=== PATIENT | female | born 1995 | race Caucasian/White ===

== ENCOUNTER → 2017-02-24 | Outpatient (CLI) | payer OTHER | LOC: NUC 09:48 | DX: K82.8 Other specified diseases of gallbladder (principal) ==

== ENCOUNTER 2017-07-08 05:18 | Day surgery (SDC) | payer OTHER ==
[~2017-07-08] VITALS: Ht 157.5 cm; Wt 70.3 kg
--- NOTE | ~2017-07-08 | O ---
[facility] [place] [address] OPERATIVE REPORT Name: PB PAREDES Room #: DEP [facility].#: [id number] Admission: 07/08/17 Attend Phys: Renzo Smith MD, F Discharge: 07/08/17 Date of : 89 Report #: [id number] THIS REPORT FOR: //name// CC: Renzo Mccoy MD DATE OF SERVICE: 07/08/2017 SURGEON: Renzo Smith MD. MEDICAL INSURANCE CODING SPECIALIST: Joana Calloway NP. PREOPERATIVE DIAGNOSIS: Biliary colic with dyskinesia. POSTOPERATIVE DIAGNOSES: Biliary colic with dyskinesia and chronic acalculous cholecystitis. PROCEDURE: Robotic assisted laparoscopic cholecystectomy. ANESTHESIA: General endotracheal anesthesia and local anesthetic. ESTIMATED BLOOD LOSS: 5 mL. SPECIMEN: Gallbladder. COMPLICATIONS: None appreciated. INDICATIONS FOR PROCEDURE: This is a 22-year-old female patient who was seen with intermittent postprandial right upper quadrant abdominal pain and occasional diarrhea. Imaging studies were negative for cholelithiasis; however, a PIPIDA scan showed a 24% gallbladder ejection fraction with reproduction of her symptoms with administration of the cholecystokinin. The patient presents today for robotic-assisted laparoscopic cholecystectomy. OPERATIVE FINDINGS: Upon entrance into the abdominal cavity, the liver, stomach, small bowel and colon and the surrounding area appeared otherwise normal. The gallbladder itself showed evidence for chronic cholecystitis with omental adhesions to the gallbladder. The gallbladder wall itself was chronically thickened. The gallbladder was also quite intrahepatic. The critical view consisting of cystic artery, cystic duct and lower edge of the gallbladder forming a window through which the liver was visible was seen prior to clipping the cystic artery and cystic duct. After removal of the gallbladder from the abdominal cavity, it was opened on the backtable. Gallbladder cholesterolosis was seen within the gallbladder. No gallstones were present. The liver bed was hemostatic and the Hemoclips on the cystic artery and cystic [facility] [address] [place] [address] OPERATIVE REPORT Name: PB PAREDES Room #: DEP [facility]#: [id number] Admission: 07/08/17 Attend Phys: Renzo Smith MD, F Discharge: 07/08/17 Date of : 89 Report #: [id number] duct were secure. DESCRIPTION OF PROCEDURE IN DETAIL: After the risks, benefits, and expectations of the operation were discussed in detail with the patient, informed consent was obtained. The patient was identified in the preoperative holding area. She was given IV antibiotics as documented in the chart in line with SCIP metrics. The patient was then taken to the operating room and she was placed in the supine position. SCDs were placed on the patient's bilateral lower extremities and pneumatic compression was initiated. The patient was then given IV sedation and she was intubated without incident. The bed was rotated 180 degrees to accommodate for the da Abbey robot. The patient's abdomen was then prepped and draped in standard sterile fashion. A time-out was performed to identify the correct patient and procedure. Local anesthetic was infiltrated into the skin and subcutaneous tissue in the left mid abdomen where an 8.5 mm incision was made with #15 blade scalpel. A 5 mm Visiport was then placed intraperitoneally with a 0-degree angled laparoscope. Pneumoperitoneum was achieved with insufflation of carbon dioxide to 15 mmHg. A 10 mm bariatric length Visiport was placed in the lower midline under direct visualization after local anesthetic was infiltrated into the skin and subcutaneous tissue and appropriately sized incisions were made. Additional 8.5 mm ports were placed in the right lower quadrant under direct visualization after local anesthetic was infiltrated and transverse incisions were made. The initially placed 5 mm port was then upsized to 8.5 mm da Abbey port. The robot was then docked to the patient. After appropriately positioning the patient in the reverse Trendelenburg position, rotated to her left. The 10 mm 30-degree angled laparoscope was inserted. A ProGrasp graspers were placed in arms 3 and 2 with the hook in arm 1. I then broke scrub to perform the dissection on the da Abbey console. The dome of the gallbladder was retracted in a cephalad direction. The omental adhesions were then taken down with appropriate traction and use of the hook cautery. With further cephalad retraction of the gallbladder, the gallbladder peritoneum was scored medially and laterally with the hook cautery device. Dissection was carried out around the cystic artery and cystic duct to identify both structures as the only 2 structures entering the gallbladder. The cystic artery was then clipped and divided. The cystic duct was attempted to be clipped robotically; however, there was a malfunction of the clipper and a 5 mm Ligaclip was used instead to triply clip and divide the cystic duct sharply, leaving 2 titanium Hemoclips on the cystic duct stump. The gallbladder was then dissected out of the liver bed with electrocautery and with no entrance into the gallbladder or liver bed. The gallbladder was fully detached and placed in the right upper quadrant of the abdomen for later removal. I then rescrubbed and the robot was undocked from the ports after removal of the instruments under direct visualization. The gallbladder was placed in an [address] [address] OPERATIVE REPORT Name: PB PAREDES Room #: DEP [facility]#: [id number] Admission: 07/08/17 Attend Phys: Renzo Smith MD, F Discharge: 07/08/17 Date of : [birth year] Report #: [id number] Endopouch and removed through the 10 mm port site fascial opening. The liver bed was reexamined for hemostasis. No other significant intra-abdominal pathology was seen. The Hemoclips were secure. An 0 PDS suture was then placed with the Doug-Miryam laparoscopic fascial closure device to close the 10 mm port site fascial opening. The suture was tied under direct visualization to ensure no incorporation of intra-abdominal content. The abdominal cavity was then desufflated and the ports were removed. Interrupted subcuticular 4-0 Monocryl sutures and Dermabond were used to close the skin incisions. The patient tolerated the procedure well. She was awakened, extubated, and taken to recovery room in stable condition with no apparent intraoperative complications. By: [id number] Renzo Smith MD, FACS /nt
--- NOTE | ~2017-07-08 | S ---
[facility] [place] [place] [address] SURGICAL PATH RPT PROCEDURE Name: EVANGELINA CRAIG Room #: DEP [facility] M.R.#: [id number] Admission: 07/08/17 Date of : 89 Discharge: 07/08/17 Report #: [id number] Path Case #: [id number] PATHOLOGY REPORT COLLECTION DATE: 07/08/2017 RECEIVED DATE: 07/08/2017 SUBMITTING PHYS: Dr. Renzo Smith OTHER PHYS: Dr. Yulissa Mccoy SPECIMEN(S) RECEIVED: A.Gallbladder * * * * * * * * * * * * FINAL DIAGNOSIS: Gallbladder, cholecystectomy: - Chronic cholecystitis. - Cholesterolosis. - No gallstones present. (SKM:chano; 07/09/2017) PATHOLOGIST: Kori Newton M.D. REPORT ELECTRONICALLY SIGNED BY: Kori Newton M.D. DATE/TIME: 07/09/2017 14:27 * * * * * * * * * * * * GROSS PATHOLOGY: Received in formalin labeled "Evangelina Craig gallbladder," is a 6.2 x 4.0 x 0.6 cm, previously opened gallbladder with dark green, wrinkled serosal surfaces. Opening the gallbladder reveals dark gomez, velvety mucosa, rippled with yellow highlights, and an average wall thickness of 0.2 cm. Calculi are not present and no masses are noted grossly. Bilingual Account Manager sections from the body and fundus are submitted along with the proximal margin in cassette A1. (TSD; 07/08/2017) CLINICAL HISTORY: Biliary dyskinesia INITIAL CPT CODE(S): A; 44562 Professional services performed by [facility] at [facility] [address], [place] [address] Technical services performed by [facility] at [address] [place] [address] [place] [address] SURGICAL PATH RPT PROCEDURE Name: EVANGELINA CRAIG Room #: DEP [facility] Arthur#: [id number] Admission: 07/08/17 Date of : [birth year] Discharge: 07/08/17 Report #: [id number] Path Case #: [id number] [place] [address]. [facility] [address] [place] [address] PHONE: [phone] DIRECTOR: Alan Dumont M.D. * * * END OF REPORT * * *
[~2017-07-08 05:18] MED LIST: LO LOESTRIN FE1 EACH PO
[2017-07-08 09:31] VITALS: BP 116/81
[2017-07-08] MEDS ORDERED: HYDROCODONE-AP1 EAC6 PO (13:05)
[2017-07-08] MEDS ORDERED: SENNA-S TABLET1 EACH PO (13:05)
[2017-07-08] MEDS ORDERED: ZOFRAN ODT4 MG PO (13:05)
[2017-07-08 13:37] VITALS: BP 116/81
== END 2017-07-08 14:59 | disposition home or self-care (01) ==
LOC: TBA 05:18 → OR 05:18
DX: K80.44 Calculus of bile duct with chronic cholecystitis without obstruction (principal); K21.9 Gastro-esophageal reflux disease without esophagitis
CPT/HCPCS: 49000; 50010; 50101; 50249; 50411; 50555; 50558; 51975; 52265; 54022; 54118; 55245; 56525; 56526; 56632; 56641; 57006; 62110; 62900; 70005